=== PATIENT | female | born 1980 | race Asian ===

== ENCOUNTER 2016-12-26 19:39 | Emergency (ER) | payer OTHER ==
[~2016-12-26] VITALS: Ht 165.1 cm; Wt 67.7 kg
[~2016-12-26 19:39] MED LIST: LOVAZA1 GM PO; Motrin PO; NOHOMEMEDS; Tylenol Extra Streng PO
[2016-12-26 22:40] VITALS: BP 107/78
== END 2016-12-26 23:00 | disposition home or self-care (01) ==
LOC: EME 19:39
DX: S81.811A Laceration without foreign body, right lower leg, initial encounter (principal); W31.89XA Contact with other specified machinery, initial encounter; Y93.A1 Activity, exercise machines primarily for cardiorespiratory conditioning; R73.03 Prediabetes
CPT/HCPCS: 99281; 99284; J1885